=== PATIENT | male | born 1960 | race Caucasian/White ===

== ENCOUNTER 2020-05-26 10:54 | Emergency (ER) | payer MEDICARE, OTHER ==
[2020-05-26 11:25] LABS: BARBITURATE SCREEN,URINE NEGATIVE (NEGATIVE); BENZODIAZEPINES SCREEN,URINE NEGATIVE (NEGATIVE); EDDP,URINE SCREEN NEGATIVE (NEGATIVE); METHAMPHETAMINE SCREEN, URINE NEGATIVE (NEGATIVE); TCA SCREEN,URINE NEGATIVE (NEGATIVE); THC SCREEN,URINE 50 NG/ML NEGATIVE (NEGATIVE)
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
[2020-05-26 11:41] LABS: CHLORIDE,CL 105 mmol/L (98-107); SODIUM,NA 141 mmol/L (136-145)
[2020-05-26 11:48] LABS: ACETAMINOPHEN 0 ug/ml (10-30); ANION GAP 14.1 mmol/L (5-15)
[2020-05-26 12:14] LABS: PTT,PARTIAL THROMBOPLSTIN TIME 33.2 SEC (25.6-32.8)
[2020-05-26] MEDS ORDERED: OLANZapine 5 MG Tab PO STA (16:04)
== END 2020-05-26 18:22 ==
LOC: VM.ED 10:54
DX: F01.51 Vascular dementia, unspecified severity, with behavioral disturbance (principal); Z86.73 Personal history of transient ischemic attack (TIA), and cerebral infarction without residual deficits; Z79.01 Long term (current) use of anticoagulants; Z79.899 Other long term (current) drug therapy; Z20.822 Contact with and (suspected) exposure to COVID-19
CPT/HCPCS: 36415; 80053; 80143; 80179; 80305-QW; 80307; 81001; 83735; 84443; 85025; 85610; 85730; 87086; 99285; A9270-GY; U0002